=== PATIENT | male | born 1985 | race Caucasian/White ===

== ENCOUNTER 2023-10-14 21:25 | Emergency (ER) | payer OTHER, MEDICAID, SELFPAY ==
[2023-10-14 21:44] VITALS: BP 162/97; PULSE 93; RESP 22; TEMP 36.3; O2SAT 100
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
--- NOTE | 2023-10-14 21:52 | DI.RAD.S_ITS ---
PROCEDURE: XR CHEST 1V INDICATIONS: hip pain, cold, fit for nursing home TECHNIQUE: One view of the chest was acquired. COMPARISON: None. FINDINGS: Surgical changes and devices: Left clavicle fixation hardware. Lungs and pleura: Lungs are clear. No pleural effusions or pneumothorax. Mediastinum: Mediastinal contours appear normal. Heart size is normal. Bones and chest wall: No suspicious bony lesions. Overlying soft tissues appear unremarkable. IMPRESSION: No acute cardiopulmonary abnormality is seen. Approved by: Bisi Vargas M.D.,Ph.D. on 10/14/2023 at 23:31
--- NOTE | 2023-10-14 22:13 | PC.NURSE ---
Changed patient into dry clothing at this time
[2023-10-14] MEDS: TET,DIPH,PERTUSS(ACELL),VAC/PF 0.5 ML SYRINGE IM (22:14)
[2023-10-14] MEDS: LIDOCAINE/PRILOCAINE 5 GM TOP (22:15)
[2023-10-14 23:01] LABS: Add Manual Diff / Slide Review NO; Basophils Absolute Auto 100 /uL (0-100); Basophils Percent Auto 1.3 % (0-2); Eosinophils Absolute Auto 100 /uL (0-450); Eosinophils Percent Auto 1.2 % (2-4); Hematocrit 41.7 % (41-53); Hemoglobin 14.2 g/dL (13.5-17.5); Lymphocytes Absolute Auto 3400 /uL (1100-4500); Lymphocytes Percent Auto 31.9 % (25-40); Mean Corpuscular HGB Conc 34.2 % (30-36); Mean Corpuscular Hemoglobin 34.8 PG (26-34); Monocytes Absolute Auto 1000 /uL (0-900); Monocytes Percent Auto 9.8 % (3-14); Neutrophils Absolute Auto 6000 /uL (1500-7000); Neutrophils Percent Auto 55.8 % (50-75); Platelet Count 237 X10^3/uL (150-400); Red Blood Cell Count 4.08 X10^6/uL (4.5-5.9); Red Cell Distribution Width 13.7 % (11.6-14.8); White Blood Cell Count 10.7 X10^3/uL (4.5-11.0)
[2023-10-14 23:10] LABS: INR 0.9 (0.9-1.3); Prothrombin Time 10.8 SECONDS (9.4-12.5)
[2023-10-14 23:13] LABS: Alanine Aminotransferase 29 IU/L (<50); Albumin 4.8 g/dL (3.5-5.0); Albumin Globulin Ratio 1.4 (1.0-2.8); Alkaline Phosphatase 88 U/L (38-126); Aspartate Aminotransferase 50 IU/L (17-59); BUN Creatinine Ratio 14.6 (6-22); Bilirubin Total 0.5 mg/dL (0.2-1.3); Blood Urea Nitrogen 12 mg/dL (9-20); Calcium 9.3 mg/dL (8.4-10.2); Carbon Dioxide 27 mmol/L (22-32); Chloride 109 mmol/L (98-107); Estimated Glomerular Filt Rate > 60 mL/min (>60); Globulin 3.4 g/dL (1.7-4.1); Glucose 84 mg/dL (70-100); HEMOLYSIS < 15 (0-50); PTT Partial Thromboplastin Tim 35 SECONDS (25.1-36.5); Potassium 4.2 mmol/L (3.4-5.1); Sodium 144 mmol/L (137-145); Total Protein 8.2 g/dL (6.3-8.2)
[2023-10-14 23:21] VITALS: TEMP 37.3
[2023-10-14] MEDS: BACITRACIN OINT 0.9 GM PCKT 1 APPLIC TOP (23:32)
[2023-10-14] MEDS: DOXYCYCLINE HYCLATE 100 MG TABLET PO (23:37)
[2023-10-14 23:49] VITALS: BP 149/89; PULSE 89; RESP 17; O2SAT 96
[2023-10-15 00:24] LABS: Ethanol (ETOH) 206 mg/dL
== END 2023-10-14 23:51 | disposition home or self-care (01) ==
PROVIDERS: Emergency Provider Emergency Medicine
DX: S91.111A Laceration without foreign body of right great toe without damage to nail, initial encounter (principal); S00.83XA Contusion of other part of head, initial encounter; S09.90XA Unspecified injury of head, initial encounter; M25.552 Pain in left hip; F10.129 Alcohol abuse with intoxication, unspecified; Y90.7 Blood alcohol level of 200-239 mg/100 ml; Z00.8 Encounter for other general examination; X58.XXXA Exposure to other specified factors, initial encounter; Z23 Encounter for immunization
CPT/HCPCS: 12001; 36415; 70450; 70486; 71045; 72125; 73630; 80053; 80320; 85025; 85610; 85730; 90471; 99284; 90715

== ENCOUNTER 2024-07-13 01:13 | Emergency (ER) | payer OTHER, SELFPAY ==
[2024-07-13 01:21] VITALS: BP 140/106; PULSE 86; RESP 17; TEMP 36.7; O2SAT 98; BMI 24.4
--- NOTE | 2024-07-13 01:31 | ED.DENTAL ---
HPI - Dental/Oral General Chief complaint: Dental/Oral Stated complaint: broken tooth pain x3 days Time Seen by Provider: 07/13/24 01:31 Source: patient Mode of arrival: Ambulatory History of Present Illness HPI Narrative: 38-year-old male no significant past medical history complaining of dental pain, states has been ongoing persistent for the past 3 days, states that it was secondary to a broken tooth, he denies any difficulty swallowing breathing speaking, denies any other symptoms such as headache visual disturbances chest pain shortness breath fever chills nausea vomiting abdominal pain or any other GI/ symptoms time. Patient states that he knows he has a lot of cavities and knees as he had dentist, states that he does not currently have 1 but is in the process of getting 1. Related Data Previous Rx's Medication Instructions Recorded doxycycline hyclate 100 mg tablet 100 mg PO BID #20 tabs 10/14/23 clindamycin HCl 150 mg capsule 450 mg (3 x 150 mg) PO TID 2 weeks 07/13/24 #126 caps Allergies Allergy/AdvReac Type Severity Reaction Status Date / Time amoxicillin Allergy Verified 10/14/23 21:44 Review of Systems Review of Systems Narrative: General: Denies fever, chills, weight loss HEENT: Positive dental pain, Denies headache, eye drainage, eye irritation, head trauma, sore throat, voice change Cardiovascular: Denies any chest pain, palpitations, tachycardia Respiratory: Denies any shortness of breath, cough, wheeze, stridor GI/: Denies any abdominal pain, nausea, vomiting, diarrhea, bright red blood per rectum, melanotic stools, urinary frequency, urinary retention, dysuria, hematuria MSK: Denies any joint pain, muscle pains, swelling Skin: Denies any rashes, lesions, discoloration Neuro: Denies any headache, lightheadedness, dizziness, fainting, weakness Psych: Denies SI/HI Patient History Social History Smoking Status: Current every day smoker Smoking Status: Current every day smoker alcohol intake frequency: 0-2 drinks per day Exam Narrative Exam Narrative: General: Cooperative, well-developed, not in acute distress HEENT: Patient with multiple dental caries, did note broken tooth to the posterior inferior right molar, no periapical abscess noted, patient is speaking full sentences protecting airway no voice changes no stridor no trismus Normocephalic, atraumatic, PERRLA, normal sclera, eyelids normal Neck: Active full range of motion, atraumatic Chest: Normal to inspection, negative crepitus, no overlying erythema ecchymosis Respiratory: Normal respiratory effort, not in acute respiratory distress, clear to auscultation bilaterally negative cough, wheeze, tachypnea, rhonchi, rales Cardiology: Regular rate rhythm negative gallop, murmur, rubs GI/: No tenderness to palpation, soft, non rigid, normal to inspection, exam deferred MSK: Full active range of motion in all 4 extremities, atraumatic, no tenderness to palpation of any bony prominences Skin: No rashes or lesions noted Neuro: Alert awake oriented x3, moves all 4 extremities spontaneously, cranial nerves intact, able to answer all questions appropriately follows commands appropriately Psych: Cooperative, negative suicidal or homicidal ideations Initial Vital Signs Initial Vital Signs: Vital Signs Temperature 98.0 F 07/13/24 01:21 Pulse Rate 86 07/13/24 01:21 Respiratory Rate 17 07/13/24 01:21 Blood Pressure 140/106 H 07/13/24 01:21 Pulse Oximetry 98 07/13/24 01:21 Oxygen Delivery Method Room Air 07/13/24 01:21 Course Vital Signs Vital signs: Vital Signs - 8 hr 07/13/24 01:21 Temperature 98.0 F Pulse Rate 86 Respiratory Rate 17 Blood Pressure 140/106 H Pulse Oximetry 98 Oxygen Delivery Method Room Air MDM - Dental/Oral Differential Diagnosis Differential diagnosis: Likely dental caries, toothache, dental abscess and fracture of tooth MDM Narrative Medical decision making narrative: 38-year-old male without any significant past medical history presenting for dental pain, states he knows he has a multiple dental caries as well as recently fractured a tooth to his bottom right jaw, states that the pain started few weeks ago it initially went away but over the past 3 days has come back in his gotten worse, he denies any other symptoms, on exam multiple dental caries noted within the mouth, however no periapical abscess noted, patient is speaking full sentences protecting airway no voice changes no stridor no trismus, patient will be sent home with antibiotics and pain management and instructed to follow up with a dentist, he verbalized understanding of this strict return precautions given agrees to being discharged home with outpatient follow up Discharge Plan Departure Patient Disposition: Home Clinical Impression: Pain, dental Instructions: DI for Dental Pain Activity Restrictions/Additional Instructions: Please follow up with your primary care doctor and your dentist Please read the discharge instructions sheet carefully and bring all papers to all doctor follow-up visits, as it may contain information that your doctor may want to see. Disease processes change and evolve, if your symptoms worsen or if you develop any new symptoms that are concerning to you please return for evaluation. Your evaluation today does not show any evidence of any life-threatening/serious illnesses requiring admission to the hospital or surgery. Please follow-up with your doctor for re-evaluation in approximately 1 day. Seek immediate medical attention for any worrisome symptoms. *If you do not have a primary care provider please contact the [facility] Resource line at [phone]. They will ask some questions about your medical history and help get you set up with a doctor in the community. Prescriptions: New clindamycin HCl 150 mg capsule 450 mg PO TID 14 Days Qty: 126 0RF No Action doxycycline hyclate 100 mg tablet 100 mg PO BID Qty: 20 0RF Stand Alone Forms: Patient Portal/API/Survey
[2024-07-13] MEDS: OXYCODONE/APAP 5/325 PREPACK 1 BOTTLE MISC (01:47)
[2024-07-13] MEDS: CLINDAMYCIN 150 MG CAPSULE 450 MG PO (01:48)
== END 2024-07-13 01:53 | disposition home or self-care (01) ==
PROVIDERS: Emergency Provider Student in an Organized Health Care Education/Training Program
DX: K08.89 Other specified disorders of teeth and supporting structures (principal)
CPT/HCPCS: 99283

== ENCOUNTER 2024-08-05 11:31 | Emergency (ER) | payer OTHER, SELFPAY ==
[2024-08-05 11:43] VITALS: BP 169/98; PULSE 58; RESP 16; TEMP 36.9; O2SAT 100; BMI 23.4
[2024-08-05] MEDS: ACETAMINOPHEN 325 MG TABLET 975 MG PO (13:34)
[2024-08-05 13:39] LABS: Add Manual Diff / Slide Review NO; Basophils Absolute Auto 100 /uL (0-100); Basophils Percent Auto 0.9 % (0-2); Eosinophils Absolute Auto 100 /uL (0-450); Hematocrit 42.3 % (41-53); Lymphocytes Absolute Auto 1800 /uL (1100-4500); Lymphocytes Percent Auto 16.5 % (25-40); Mean Corpuscular HGB Conc 35.4 % (30-36); Mean Corpuscular Volume 101.6 fL (80-100); Monocytes Absolute Auto 1200 /uL (0-900); Monocytes Percent Auto 11.1 % (3-14); Neutrophils Absolute Auto 7500 /uL (1500-7000); Neutrophils Percent Auto 70.5 % (50-75); Platelet Count 226 X10^3/uL (150-400); Red Blood Cell Count 4.16 X10^6/uL (4.5-5.9); Red Cell Distribution Width 15.1 % (11.6-14.8); White Blood Cell Count 10.7 X10^3/uL (4.5-11.0)
[2024-08-05 13:49] LABS: BUN Creatinine Ratio 13.3 (6-22); Blood Urea Nitrogen 10 mg/dL (9-20); Calcium 9.4 mg/dL (8.4-10.2); Carbon Dioxide 20 mmol/L (22-32); Chloride 106 mmol/L (98-107); Estimated Glomerular Filt Rate > 60 mL/min (>60); Glucose 103 mg/dL (70-99); Sodium 137 mmol/L (137-145)
[2024-08-05 13:50] LABS: HEMOLYSIS 121 (0-50)
--- NOTE | 2024-08-05 14:36 | ED_ITS ---
HPI - General Adult General Chief complaint: Dental/Oral Stated complaint: Right side jaw swelling, hard time swallowing Time Seen by Provider: 08/05/24 14:24 Source: patient, RN notes reviewed and old records reviewed Mode of arrival: Ambulatory Limitations: no limitations History of Present Illness HPI narrative: 38-year-old male phone history of poor dentition has been taking clindamycin for 2 or 3 weeks anticipating having 1 of his molars removed on the right side. Patient states over the last day or so he was started having increasing swelling underneath the right jaw as well as increasing pain that radiates to his ear. No fevers. He was had some nausea but no vomiting. No muffled voice or changes to his airway. He states there might be a little bit of swelling underneath his tongue but states it is mostly off to the side and below the right jaw. Patient states it is tender to touch. He has not seen any redness or warmth on the outside. Has not had any drainage in the inside. States he was not on any other daily medications normally. Quit using tobacco and started vaping recently, occasional alcohol, marijuana no recreational drugs. States no other daily medications. Describes an allergy to amoxicillin with rash. He was not sure about any other antibiotics and states he was very young when this occurred. He has not upcoming appointment with a dentist to have his tooth extracted. Related Data Previous Rx's Medication Instructions Recorded doxycycline hyclate 100 mg tablet 100 mg PO BID #20 tabs 10/14/23 metronidazole 500 mg tablet 500 mg PO Q8H 7 days #21 tabs 08/05/24 Allergies Allergy/AdvReac Type Severity Reaction Status Date / Time amoxicillin Allergy Verified 08/05/24 11:42 Review of Systems Review of Systems ROS Unobtainable: All systems reviewed & are unremarkable except as noted in HPI and below Patient History tobacco type: vaping alcohol intake frequency: 0-2 drinks per day Exam Narrative Exam Narrative: GEN: well nourished, well appearing male, alert and oriented x 3, patient appears to be in mild distress. HEENT: Atraumatic, pupils are equal round reactive to light, extraocular movements are intact, nares are clear, TMs are clear with no fluid, there is no conjunctival pallor. Throat is clear without any exudates, erythema, tonsillar enlargement or uvular deviation, patient does have poor dentition throughout, some mild swelling of the right cheek externally and submandibularly, no palpable nodules or abscess. Normal speech no stridor no difficulty with secretions. No muffled voice or hoarseness. HEART: Regular rate and rhythm without murmur, clicks, rubs. LUNGS:Lungs clear to auscultation, no wheezes, rales, crackles, chest moves symmetrically ABD:bowel sounds normal, soft, non-tender, no guarding, rebound, rigidity, no masses noted, no hepatosplenomegaly MSCL: Non-tender, no muscle atrophy, muscles strength 5/5 upper and lower extremities, full range of motion, normal gait NEURO:CN 2-12 intact, sensation normal. SKIN: No rash, erythema or other skin changes noted Initial Vital Signs Initial Vital Signs: Vital Signs Temperature 98.5 F 08/05/24 11:43 Pulse Rate 58 L 08/05/24 11:43 Respiratory Rate 16 08/05/24 11:43 Blood Pressure 169/98 H 08/05/24 11:43 Pulse Oximetry 100 08/05/24 11:43 Oxygen Delivery Method Room Air 08/05/24 11:43 Course Orders Ordered: ED Orders 08/05/24 13:29 BMP [Basic Metabolic Panel] Stat Complete Blood Count AUTO DIFF Stat 08/05/24 14:47 CT soft tissue neck w con Stat Discontinued Medications Acetaminophen (Acetaminophen 325 Mg Tablet) 975 mg PO NOW ONE Stop: 08/05/24 13:31 Last Admin: 08/05/24 13:34 Dose: 975 mg Documented By: CELIA Acetaminophen (Acetaminophen 650 Mg Supp) 650 mg [place] NOW ONE Stop: 08/05/24 13:31 Last Admin: 08/05/24 13:34 Dose: Not Given Documented By: CELIA Ibuprofen (Ibuprofen 400 Mg Tablet) 800 mg PO NOW ONE Stop: 08/05/24 13:31 Last Admin: 08/05/24 15:07 Dose: Not Given Documented By: SB Ketorolac Tromethamine (Ketorolac 30 Mg/Ml Vial) 15 mg IV NOW ONE Stop: 08/05/24 14:48 Last Admin: 08/05/24 15:10 Dose: 15 mg Documented By: TC Vital Signs Vital signs: Vital Signs - 8 hr 08/05/24 11:43 08/05/24 16:15 Temperature 98.5 F Pulse Rate 58 L 58 L Respiratory Rate 16 16 Blood Pressure 169/98 H 166/92 H Pulse Oximetry 100 100 Oxygen Delivery Method Room Air Room Air Medical Decision Making Lab Data 08/05/24 13:29 08/05/24 13:29 Labs: Lab Results 08/05/24 Range/Units 13:29 WBC 10.7 (4.5-11.0) X10^3/uL RBC 4.16 L (4.5-5.9) X10^6/uL Hgb 15.0 (13.5-17.5) g/dL Hct 42.3 (41-53) % MCV 101.6 H (80-100) fL MCH 36.0 H (26-34) PG MCHC 35.4 (30-36) % RDW 15.1 H (11.6-14.8) % Plt Count 226 (150-400) X10^3/uL Neut % (Auto) 70.5 (50-75) % Lymph % (Auto) 16.5 L (25-40) % [place] % (Auto) 11.1 (3-14) % Eos % (Auto) 1.0 L (2-4) % Baso % (Auto) 0.9 (0-2) % Neut # (Auto) 7500 H (1463-8933) /uL Lymph # (Auto) 1800 (1053-3145) /uL [place] # (Auto) 1200 H (0-900) /uL Eos # (Auto) 100 (0-450) /uL Baso # (Auto) 100 (0-100) /uL Sodium 137 (137-145) mmol/L Potassium 5.0 (3.4-5.1) mmol/L Chloride 106 (98-107) mmol/L Carbon Dioxide 20 L (22-32) mmol/L BUN 10 (9-20) mg/dL Creatinine 0.75 (0.66-1.25) mg/dL Estimated GFR > 60 (>60) mL/min BUN/Creatinine Ratio 13.3 (6-22) Glucose 103 H (70-99) mg/dL Calcium 9.4 (8.4-10.2) mg/dL [facility] Narrative Medical decision making narrative: Labs show white count of 10 hemoglobin of 15 platelets of 226. Electrolytes are appropriate CO2 is 20, BUN creatinine are appropriate glucose is 103. Patient has had new swelling on the side of his known dental infection despite being on clindamycin we will obtain CT soft tissue neck to rule out abscess. CT imaging shows nonspecific soft tissue edema right lower face no abscess seen no signs of osteomyelitis. Oropharynx, nasopharynx and pharynx demonstrate no mucosal lesions the vocal cords, false vocal cords piriformis sinus epiglottis, vallecula and tongue base all appear normal. Parotid and submandibular glands appear normal thyroid is unremarkable. No peripheral enhancing fluid collections noted. Patient has an allergy to amoxicillin, describes it as hives. Has a as a child. Essential if any other antibiotic allergies. Discussed with the patient we will change his oral antibiotic. Discharge Plan Departure Patient Disposition: Home Clinical Impression: Cellulitis of face, Dental infection Instructions: DI for Cellulitis -- Adult Activity Restrictions/Additional Instructions: Follow up with your dentist to have your tooth extracted, there is no abscess or fluid collection, there was no signs of change to the bone itself imaging today. Because of your antibiotic allergies you can continue your current antibiotic but add Flagyl 500 mg 1 tablet 3 times daily for 7 days. This medication will make you vomit if you drink alcohol while taking it. Prescription sent to [facility] in [place]. Please return for fevers, rapidly worsening swelling, any new redness, drainage, swelling of the lips, tongue or airway, difficulty with swallowing or slept for secretions, any changes to voice or other new or concerning changes. Prescriptions: New metronidazole 500 mg tablet 500 mg PO Q8H 7 Days Qty: 21 0RF No Action doxycycline hyclate 100 mg tablet 100 mg PO BID Qty: 20 0RF Stand Alone Forms: Patient Portal/API/Survey
--- NOTE | 2024-08-05 14:47 | DI.CT.S_ITS ---
PROCEDURE: CT SOFT TISSUE NECK W CON INDICATIONS: R jaw swelling, known poor dentition, has been on abx recent TECHNIQUE: After the administration of intravenous contrast, 3.0 mm axial sections acquired from the sella to the aortic arch. Additional oblique axial 3.0 mm sections acquired through the pharynx. 3 mm thick coronal and sagittal reformats were generated. For radiation dose reduction, the following was used: automated exposure control. COMPARISON: [facility], CT, CT CERVICAL SPINE WO CON, 10/14/2023, 21:54. FINDINGS: Image quality: Excellent. Lymph nodes: Increased number of small right upper cervical lymph nodes, which are likely reactive. Vessels: Visualized vasculature appears patent. Neck spaces: Predominantly right-sided dental disease is noted. The oropharynx, nasopharynx, and pharynx demonstrate no mucosal lesions. The vocal cords, false vocal cords, pyriform sinuses, epiglottis, vallecula, and tongue base all appear normal. Extramucosal spaces appear unremarkable. Glands: The parotid and submandibular glands appear normal. Thyroid is unremarkable. Miscellaneous: Soft tissue edema is seen in the right face overlying the mandible. No peripherally enhancing fluid collection is seen. Visualized brain and orbits appear normal. Lung apices appear clear. Bones: No suspicious bony lesions. Visualized sinuses and mastoids appear unremarkable. Postsurgical changes noted in the left clavicle. IMPRESSION: Nonspecific soft tissue edema in the right lower face. No abscess is seen. No signs of osteomyelitis. Approved by: Greyson Blakely M.D. on 08/05/2024 at 15:40
[2024-08-05] MEDS: KETOROLAC 30 MG/ML VIAL 15 MG IV (15:10)
[2024-08-05 16:15] VITALS: BP 166/92; PULSE 58; RESP 16; O2SAT 100
== END 2024-08-05 16:16 | disposition home or self-care (01) ==
PROVIDERS: Emergency Provider Emergency Medicine
DX: L03.211 Cellulitis of face (principal); K04.7 Periapical abscess without sinus; Z88.0 Allergy status to penicillin
CPT/HCPCS: 70491; 80048; 85025; 96374; 99284; J1885; Q9967

== ENCOUNTER 2024-08-10 15:45 | Emergency (ER) | payer OTHER, SELFPAY ==
[2024-08-10 16:04] VITALS: BP 125/79; PULSE 90; RESP 20; TEMP 36.6; O2SAT 100; BMI 22.4
--- NOTE | 2024-08-10 21:35 | PC.NURSE ---
called pt to come back to draw labs and for repeat Ct, no answer in [facility], registration stated pt left
== END 2024-08-10 21:38 | disposition left against medical advice (07) ==
PROVIDERS: Emergency Provider Emergency Medicine
DX: R68.84 Jaw pain (principal)
CPT/HCPCS: 99281

== ENCOUNTER 2024-08-11 19:31 | Emergency (ER) | payer OTHER, SELFPAY ==
[2024-08-11] VITALS (10 sets, daily range): BP systolic 121–146; BP diastolic 78–95; PULSE 56–84; RESP 18; TEMP 36.9; O2SAT 99–100; BMI 24.4
--- NOTE | 2024-08-11 19:49 | ED_ITS ---
HPI - General Adult General Chief complaint: Dental/Oral Stated complaint: rt sided jaw pain, swelling Time Seen by Provider: 08/11/24 19:38 Mode of arrival: Ambulatory History of Present Illness HPI narrative: 38-year-old male with poor dentition, complains of 3 weeks' duration right jaw pain, history of amoxicillin allergy, was prescribed clindamycin from ED visit, saw another provider recent days [facility], apparently prescribed clindamycin again, does not recall being on any steroids, has not yet seen any dentist provider. Complains of right jaw pain and swelling. Able to swallow. Can move his neck. Related Data Previous Rx's Medication Instructions Recorded doxycycline hyclate 100 mg tablet 100 mg PO BID #20 tabs 10/14/23 metronidazole 500 mg tablet 500 mg PO Q8H 7 days #21 tabs 08/05/24 clindamycin HCl 300 mg capsule 300 mg PO Q6H Dental infection 7 08/12/24 days #28 caps prednisone 20 mg tablet 40 mg (2 x 20 mg) PO DAILY 5 days 08/12/24 #10 tabs Allergies Allergy/AdvReac Type Severity Reaction Status Date / Time amoxicillin Allergy Verified 08/11/24 22:41 Patient History tobacco type: vaping alcohol intake frequency: 0-2 drinks per day Exam Narrative Exam Narrative: GENERAL: Well-developed patient, in mild distress. HEAD: Atraumatic. Normocephalic. EYES: Pupils equal round and reactive. Extraocular motions intact. No scleral icterus. No injection or drainage. ENT: Nose without bleeding, purulent drainage. Throat without erythema, tonsillar hypertrophy or exudate. Airway patent. Swelling of the right jaw. Oropharynx with significant diffuse poor dentition, numerous broken teeth including right molar region, also right upper incisor and canine. NECK: Trachea midline. Non tender can move neck well. CARDIOVASCULAR: Regular rate and rhythm without murmurs, gallops, or rubs. RESPIRATORY: Clear to auscultation. Breath sounds equal bilaterally. No wheezes, rales, or rhonchi. GASTROINTESTINAL: Abdomen soft, non-tender, nondistended. EXTREMITIES: No edema or joint tenderness. BACK: Nontender without deformity or crepitance. No flank tenderness. NEURO: AOx3. Motor functions grossly nonfocal SKIN: No rash or erythema of visible areas Initial Vital Signs Initial Vital Signs: Vital Signs Temperature 98.4 F 08/11/24 19:39 Pulse Rate 84 08/11/24 19:39 Respiratory Rate 18 08/11/24 19:39 Blood Pressure 121/78 08/11/24 19:39 Pulse Oximetry 99 08/11/24 19:39 Oxygen Delivery Method Room Air 08/11/24 19:39 Course Orders Ordered: ED Orders 08/11/24 19:57 CT soft tissue neck w con Stat 08/11/24 20:05 CBC Auto Diff [Complete Blood Count AUTO DIFF] Stat CMP [Comprehensive Metabolic Panel] Stat Discontinued Medications Hydrocodone Bitart/Acetaminophen (Hydrocodone/Acet 5/325 Prepack) 1 bottle MISC DIRECTED ONE Stop: 08/12/24 00:34 Last Admin: 08/12/24 00:48 Dose: 1 bottle Documented By: SALMA Dexamethasone (Dexamethasone 10 Mg/Ml Vial) 10 mg IV NOW ONE Stop: 08/11/24 19:57 Last Admin: 08/11/24 20:20 Dose: 10 mg Documented By: JESSY Sodium Chloride (Normal Saline 0.9%) 1,000 mls @ 1,000 mls/hr IV BOLUS ONE Stop: 08/11/24 20:55 Last Infusion: 08/11/24 21:50 Dose: Infused Documented By: Admin: 08/11/24 20:19 Dose: 1,000 mls/hr Documented By: JESSY Clindamycin Phosphate (Cleocin) 900 mg in 50 mls @ 50 mls/hr IV NOW ONE Stop: 08/11/24 20:55 Last Infusion: 08/11/24 21:26 Dose: Infused Documented By: Admin: 08/11/24 20:20 Dose: 50 mls/hr Documented By: JESSY Vital Signs Vital signs: Vital Signs - 8 hr 08/11/24 19:39 08/11/24 20:28 08/11/24 20:30 Temperature 98.4 F Pulse Rate 84 61 59 L Respiratory Rate 18 Blood Pressure 121/78 134/85 Pulse Oximetry 99 100 100 Oxygen Delivery Method Room Air Room Air 08/11/24 21:00 08/11/24 21:30 08/11/24 21:30 Temperature Pulse Rate 64 Respiratory Rate Blood Pressure 142/84 H Pulse Oximetry 100 100 Oxygen Delivery Method 08/11/24 22:00 08/11/24 22:00 08/11/24 22:05 Temperature Pulse Rate 57 L 57 L Respiratory Rate Blood Pressure 145/89 H Pulse Oximetry 100 100 Oxygen Delivery Method 08/11/24 22:05 08/11/24 22:30 08/11/24 22:30 Temperature Pulse Rate 59 L Respiratory Rate Blood Pressure 139/93 H 146/93 H Pulse Oximetry 99 Oxygen Delivery Method 08/11/24 22:30 08/11/24 23:00 08/11/24 23:00 Temperature Pulse Rate 59 L 59 L Respiratory Rate Blood Pressure 146/95 H Pulse Oximetry 99 99 Oxygen Delivery Method 08/11/24 23:30 08/11/24 23:30 08/12/24 00:00 Temperature Pulse Rate 56 L 62 Respiratory Rate Blood Pressure 132/87 Pulse Oximetry 99 99 Oxygen Delivery Method 08/12/24 00:00 08/12/24 00:30 08/12/24 00:30 Temperature Pulse Rate 69 Respiratory Rate 16 Blood Pressure 134/88 144/88 H Pulse Oximetry 100 Oxygen Delivery Method Medical Decision Making Lab Data 08/11/24 20:05 08/11/24 20:05 Labs: Lab Results 08/11/24 Range/Units 20:05 WBC 11.3 H (4.5-11.0) X10^3/uL RBC 4.01 L (4.5-5.9) X10^6/uL Hgb 14.2 (13.5-17.5) g/dL Hct 42.0 (41-53) % MCV 104.7 H D (80-100) fL MCH 35.5 H (26-34) PG MCHC 33.9 (30-36) % RDW 15.8 H (11.6-14.8) % Plt Count 357 (150-400) X10^3/uL Neut % (Auto) 67.6 (50-75) % Lymph % (Auto) 19.3 L (25-40) % [place] % (Auto) 10.8 (3-14) % Eos % (Auto) 1.5 L (2-4) % Baso % (Auto) 0.8 (0-2) % Neut # (Auto) 7600 H (7940-4884) /uL Lymph # (Auto) 2200 (1697-7647) /uL [place] # (Auto) 1200 H (0-900) /uL Eos # (Auto) 200 (0-450) /uL Baso # (Auto) 100 (0-100) /uL Sodium 139 (137-145) mmol/L Potassium 4.9 (3.4-5.1) mmol/L Chloride 108 H (98-107) mmol/L Carbon Dioxide 18 L (22-32) mmol/L BUN 17 (9-20) mg/dL Creatinine 1.30 H (0.66-1.25) mg/dL Estimated GFR > 60 (>60) mL/min BUN/Creatinine Ratio 13.1 (6-22) Glucose 177 H (70-99) mg/dL Calcium 9.5 (8.4-10.2) mg/dL Total Bilirubin 0.6 (0.2-1.3) mg/dL AST 30 (17-59) IU/L ALT 18 (<50) IU/L Alkaline Phosphatase 73 (38-126) U/L Total Protein 8.1 (6.3-8.2) g/dL Albumin 4.5 (3.5-5.0) g/dL Globulin 3.6 (1.7-4.1) g/dL Albumin/Globulin Ratio 1.3 (1.0-2.8) Imaging Data CT soft tissue neck with IV contrast: Radiologist's Impression: [place] [address] CT Scan Report Signed Patient: Sukhwinder Lau MR#: [id number] : 1985 Acct:[id number] Age/Sex: 38 / M Date of Service: 08/11/24 Loc: ED Accession Number: [id number] Procedure: CT soft tissue neck w con Ordering Provider: Venkatesh Villaseñor MD PROCEDURE: CT SOFT TISSUE NECK W CON INDICATIONS: right jaw swelling, eval for drainable abscess TECHNIQUE: After the administration of intravenous contrast, 3.0 mm axial sections acquired from the sella to the aortic arch. Additional oblique axial 3.0 mm sections acquired through the pharynx. 3 mm thick coronal and sagittal reformats were generated. For radiation dose reduction, the following was used: automated exposure control. COMPARISON: [facility], CT, CT SOFT TISSUE NECK W CON, 08/05/2024, 14:56. FINDINGS: Image quality: Excellent. Bone: No acute fracture or dislocation. Alignment: Straightening of the cervical lordosis. Muscles: Overall muscle bulk is preserved. Neck spaces: Fat stranding in the right parapharyngeal fat space (2/23). Asymmetric edema of the right submandibular gland (2/46). Asymmetric fat stranding of the right submandibular/buccal space (2/42). 0.9 cm hypodense collection without clearly defined borders, in contact with dehiscence of the buccal cortex of the right mandibular trigone (2/39). Mild asymmetric enlargement of the right sales solutions associate and pterygoid musculature (2/30). Bilateral palatine tonsilloliths. The parotid, sales solutions associate, submandibular, parapharyngeal, pharyngeal mucosal, retropharyngeal, and perivertebral spaces are otherwise within normal limits. Orbits: Optic globes, intraconal/extraconal fat spaces, and extraocular muscles within normal limits. No retrobulbar mass. Thyroid gland: Within normal limits. Airway: Visualized trachea within normal limits. Esophagus: No abnormal mural thickening of the visualized esophagus. Lymph nodes: No cervical or medial supraclavicular lymphadenopathy by size criteria. Vessels: No aneurysmal dilatation of the visualized vasculature. Lung apices: No pneumothorax in the visualized lung apices. Sinuses: Visualized paranasal sinuses, mastoid air cells, and middle ear cavities are clear. Dentition: Periapical lucency around the right 2nd premolar dentition (5/51). Soft tissues: No acute abnormality. IMPRESSION: 1. Likely developing sub cm phlegmon originating from right mandibular trigone periapical lucency and cortical dehiscence. 2. Likely reactive right-sided facial edema, cellulitis, and myositis of the right sales solutions associate space musculature. 3. Right submandibular gland sialadenitis without an obstructing calculus. Dictated by: Abilio Urias M.D. on 08/11/2024 at 22:32 Approved by: Abilio Urias M.D. on 08/11/2024 at 22:43 MDM Narrative Medical decision making narrative: 38-year-old male with ongoing right jaw pain, poor dentition, some right-sided jaw swelling visible, some slight trismus unable to fully open his jaw due to right swelling pain. No abnormal phonation, can move his neck well. No stridor. Labs pending. IV clindamycin, Decadron, fluid bolus. He has been taking ibuprofen regularly, recently, we will hold Toradol for now. CT soft tissue neck imaging ordered. CT shows developing subcentimeter phlegmon right mandibular trigone, ortega or apical lucency with cortical dehiscence. Likely reactive right-sided facial edema, cellulitis, myositis of the right sales solutions associate space musculature, right submandibular gland [place] adenitis without obstructing calculus. See radiology report. Patient significantly improved with IV antibiotics and steroids. No oral surgeon on-call here. He would like to go home and follow up with dentist, stated that he would go to dentist office tomorrow. We will send prescription for clindamycin oral antibiotic, and prednisone pulse. Follow up with the dental tomorrow. Also given clinic contact information to local oral surgeon Dr. Culver office though he is not on-call. Also gave contact clinic information to office of otolaryngology Dr. Qiu. Discharge Plan Departure Patient Disposition: Home Clinical Impression: Dental abscess, Dental caries Instructions: Tooth Abscess, DI for Dental Pain Activity Restrictions/Additional Instructions: Right-sided jaw swelling, intermittent courses of clindamycin antibiotic due to suspected infection, history of amoxicillin allergy, increased swelling to the right jaw. IV clindamycin and steroids given. CT scanning showed small abscess less than 1 cm in right dental area. There is some inflammatory change that goes toward a salivary gland although there is no obstructing stone within the salivary gland. Likely this is arising from dental infection. Follow up with your at dentist Thursday later today. Clinic contact information also provided for local otolaryngology specialist Dr. Qiu, and local oral surgeon Dr. Culver, though most directly you would likely benefit from initial care through your dentist office. Follow up with your dentist later today during regular hours as intended. Take antibiotics and steroids as prescribed. Pain medication home pack dispensed. Return earlier to this/nearest emergency department for any change worsening symptoms or any concerns prior to your dental evaluation. Prescriptions: New clindamycin HCl 300 mg capsule 300 mg PO Q6H 7 Days Qty: 28 0RF prednisone 20 mg tablet 40 mg PO DAILY 5 Days Qty: 10 0RF No Action doxycycline hyclate 100 mg tablet 100 mg PO BID Qty: 20 0RF metronidazole 500 mg tablet 500 mg PO Q8H 7 Days Qty: 21 0RF Referrals: Horace Culver, ENZO [Physician] - Romeo Qiu MD [Physician] - Miscellaneous,MD [place] [Primary Care Provider] - Stand Alone Forms: Patient Portal/API/Survey
--- NOTE | 2024-08-11 19:57 | DI.CT.S_ITS ---
PROCEDURE: CT SOFT TISSUE NECK W CON INDICATIONS: right jaw swelling, eval for drainable abscess TECHNIQUE: After the administration of intravenous contrast, 3.0 mm axial sections acquired from the sella to the aortic arch. Additional oblique axial 3.0 mm sections acquired through the pharynx. 3 mm thick coronal and sagittal reformats were generated. For radiation dose reduction, the following was used: automated exposure control. COMPARISON: [facility], CT, CT SOFT TISSUE NECK W CON, 08/05/2024, 14:56. FINDINGS: Image quality: Excellent. Bone: No acute fracture or dislocation. Alignment: Straightening of the cervical lordosis. Muscles: Overall muscle bulk is preserved. Neck spaces: Fat stranding in the right parapharyngeal fat space (2/23). Asymmetric edema of the right submandibular gland (2/46). Asymmetric fat stranding of the right submandibular/buccal space (2/42). 0.9 cm hypodense collection without clearly defined borders, in contact with dehiscence of the buccal cortex of the right mandibular trigone (2/39). Mild asymmetric enlargement of the right embroiderer hand and pterygoid musculature (2/30). Bilateral palatine tonsilloliths. The parotid, embroiderer hand, submandibular, parapharyngeal, pharyngeal mucosal, retropharyngeal, and perivertebral spaces are otherwise within normal limits. Orbits: Optic globes, intraconal/extraconal fat spaces, and extraocular muscles within normal limits. No retrobulbar mass. Thyroid gland: Within normal limits. Airway: Visualized trachea within normal limits. Esophagus: No abnormal mural thickening of the visualized esophagus. Lymph nodes: No cervical or medial supraclavicular lymphadenopathy by size criteria. Vessels: No aneurysmal dilatation of the visualized vasculature. Lung apices: No pneumothorax in the visualized lung apices. Sinuses: Visualized paranasal sinuses, mastoid air cells, and middle ear cavities are clear. Dentition: Periapical lucency around the right 2nd premolar dentition (5/51). Soft tissues: No acute abnormality. IMPRESSION: 1. Likely developing sub cm phlegmon originating from right mandibular trigone periapical lucency and cortical dehiscence. 2. Likely reactive right-sided facial edema, cellulitis, and myositis of the right embroiderer hand space musculature. 3. Right submandibular gland sialadenitis without an obstructing calculus. Dictated by: Abilio Urias M.D. on 08/11/2024 at 22:32 Approved by: Abilio Urias M.D. on 08/11/2024 at 22:43
[2024-08-11 20:18] LABS: Add Manual Diff / Slide Review NO; Basophils Absolute Auto 100 /uL (0-100); Basophils Percent Auto 0.8 % (0-2); Eosinophils Absolute Auto 200 /uL (0-450); Eosinophils Percent Auto 1.5 % (2-4); Hemoglobin 14.2 g/dL (13.5-17.5); Lymphocytes Absolute Auto 2200 /uL (1100-4500); Lymphocytes Percent Auto 19.3 % (25-40); Mean Corpuscular HGB Conc 33.9 % (30-36); Mean Corpuscular Hemoglobin 35.5 PG (26-34); Mean Corpuscular Volume 104.7 fL (80-100); Monocytes Absolute Auto 1200 /uL (0-900); Monocytes Percent Auto 10.8 % (3-14); Neutrophils Absolute Auto 7600 /uL (1500-7000); Neutrophils Percent Auto 67.6 % (50-75); Platelet Count 357 X10^3/uL (150-400); Red Blood Cell Count 4.01 X10^6/uL (4.5-5.9); Red Cell Distribution Width 15.8 % (11.6-14.8); White Blood Cell Count 11.3 X10^3/uL (4.5-11.0)
[2024-08-11] MEDS: SODIUM CHLORIDE 0.9% 1,000 ML 1000 ML IV (20:19)
[2024-08-11] MEDS: DEXAMETHASONE 10 MG/ML VIAL IV (20:20)
[2024-08-11] MEDS: CLINDAMYCIN 900 MG/50 ML PIGGYBACK 50 MG IV (20:20)
[2024-08-11 20:51] LABS: Alanine Aminotransferase 18 IU/L (<50); Albumin 4.5 g/dL (3.5-5.0); Albumin Globulin Ratio 1.3 (1.0-2.8); Alkaline Phosphatase 73 U/L (38-126); Aspartate Aminotransferase 30 IU/L (17-59); BUN Creatinine Ratio 13.1 (6-22); Bilirubin Total 0.6 mg/dL (0.2-1.3); Blood Urea Nitrogen 17 mg/dL (9-20); Calcium 9.5 mg/dL (8.4-10.2); Carbon Dioxide 18 mmol/L (22-32); Chloride 108 mmol/L (98-107); Estimated Glomerular Filt Rate > 60 mL/min (>60); Globulin 3.6 g/dL (1.7-4.1); Glucose 177 mg/dL (70-99); HEMOLYSIS 68 (0-50); Potassium 4.9 mmol/L (3.4-5.1); Sodium 139 mmol/L (137-145); Total Protein 8.1 g/dL (6.3-8.2)
[2024-08-12] VITALS: BP 134/88; PULSE 62; O2SAT 99
[2024-08-12 00:30] VITALS: BP 144/88; PULSE 69; RESP 16; O2SAT 100
[2024-08-12] MEDS: HYDROCODONE/ACET 5/325 PREPACK 1 BOTTLE MISC (00:48)
== END 2024-08-12 00:49 | disposition home or self-care (01) ==
PROVIDERS: Emergency Provider Emergency Medicine
DX: K04.7 Periapical abscess without sinus (principal); K02.9 Dental caries, unspecified
CPT/HCPCS: 36415; 70491; 80053; 85025; 96365; 99284; J1100; Q9967

== ENCOUNTER 2024-08-16 18:26 | Emergency (ER) | payer OTHER, SELFPAY ==
[2024-08-16 18:34] VITALS: BP 148/84; PULSE 83; RESP 16; TEMP 36.7; O2SAT 98; BMI 23.7
[2024-08-16 19:44] VITALS: PULSE 63; RESP 18; O2SAT 98
[2024-08-16 19:47] VITALS: BP 128/77; PULSE 64; O2SAT 98
--- NOTE | 2024-08-16 19:53 | ED.DENTAL ---
HPI - Dental/Oral General Chief complaint: Dental/Oral Stated complaint: needs tooth pulled Time Seen by Provider: 08/16/24 19:53 History of Present Illness HPI Narrative: 38-year-old male no significant past medical history comes into the ED from home for evaluation dental pain facial swelling, states that he has been having an infection to his right lower molar for proximally weeks, states he has had increased pain but is able to tolerate p.o. liquids and solids, states it was seen at [facility] and was told he was going to have to wait proximally 2-3 weeks for extraction, he was instructed to come into the ED for further evaluation treatment. Time of evaluation patient is speaking in full sentences protecting airway, he is not complaining of any other symptoms at this time. Related Data Previous Rx's Medication Instructions Recorded clindamycin HCl 300 mg capsule 300 mg PO Q6H Dental infection 7 08/12/24 days #28 caps clindamycin HCl 150 mg capsule 450 mg (3 x 150 mg) PO TID 2 weeks 08/16/24 #126 caps Allergies Allergy/AdvReac Type Severity Reaction Status Date / Time amoxicillin Allergy Unknown Verified 08/16/24 19:53 Review of Systems Review of Systems Narrative: General: Denies fever, chills, weight loss HEENT: Positive dental pain, facial swelling Denies headache, eye drainage, eye irritation, head trauma, sore throat, voice change Cardiovascular: Denies any chest pain, palpitations, tachycardia Respiratory: Denies any shortness of breath, cough, wheeze, stridor GI/: Denies any abdominal pain, nausea, vomiting, diarrhea, bright red blood per rectum, melanotic stools, urinary frequency, urinary retention, dysuria, hematuria MSK: Denies any joint pain, muscle pains, swelling Skin: Denies any rashes, lesions, discoloration Neuro: Denies any headache, lightheadedness, dizziness, fainting, weakness Psych: Denies SI/HI Patient History tobacco type: vaping alcohol intake frequency: 0-2 drinks per day Exam Narrative Exam Narrative: General: Cooperative, well-developed, not in acute distress HEENT: Normocephalic, atraumatic, PERRLA, normal sclera, eyelids normal, patient does have some mild submandibular swelling mild tenderness to palpation but is without any voice change trismus, patient with multiple dental caries, posterior oropharynx clear without any signs of obstruction uvula is midline no stridor, is able to tolerate p.o. liquids and solids, overlying cellulitis, he is well-appearing nontoxic tolerating his secretions Neck: Active full range of motion, atraumatic Chest: Normal to inspection, negative crepitus, no overlying erythema ecchymosis Respiratory: Normal respiratory effort, not in acute respiratory distress, clear to auscultation bilaterally negative cough, wheeze, tachypnea, rhonchi, rales Cardiology: Regular rate rhythm negative gallop, murmur, rubs GI/: No tenderness to palpation, soft, non rigid, normal to inspection, exam deferred MSK: Full active range of motion in all 4 extremities, atraumatic, no tenderness to palpation of any bony prominences Skin: No rashes or lesions noted Neuro: Alert awake oriented x3, moves all 4 extremities spontaneously, cranial nerves intact, able to answer all questions appropriately follows commands appropriately Psych: Cooperative, negative suicidal or homicidal ideations Initial Vital Signs Initial Vital Signs: Vital Signs Temperature 98.1 F 08/16/24 18:34 Pulse Rate 83 08/16/24 18:34 Respiratory Rate 16 08/16/24 18:34 Blood Pressure 148/84 H 08/16/24 18:34 Pulse Oximetry 98 08/16/24 18:34 Oxygen Delivery Method Room Air 08/16/24 18:34 Course Vital Signs Vital signs: Vital Signs - 8 hr 08/16/24 18:34 08/16/24 19:44 Temperature 98.1 F Pulse Rate 83 63 Respiratory Rate 16 18 Blood Pressure 148/84 H Pulse Oximetry 98 98 Oxygen Delivery Method Room Air MDM - Dental/Oral Differential Diagnosis Differential diagnosis: Likely dental caries, toothache and dental abscess MDM Narrative Medical decision making narrative: 38-year-old male history of no significance presenting for persistent dental pain, states it has been ongoing persistent for the past 3 weeks, has been on antibiotics but states that he is close to running out did see a dentist today however he states that they told him they do not accept his insurance /does not have enough money and was told to go to [facility] in [place] he states that the next available appointment is 2-3 weeks out so he is instructed to come here for further evaluation treatment. On exam patient does have some submandibular swelling, however there is no voice change stridor trismus no overlying cellulitis posterior oropharynx is clear without any signs of obstruction patient is tolerating secretions, patient will be discharged home with antibiotics and analgesics and instructed to follow up with dentist. He was given strict return precautions he verbalized understanding of this and agrees to being discharged home with outpatient follow up Discharge Plan Departure Patient Disposition: Home Clinical Impression: Pain, dental Instructions: DI for Dental Pain Activity Restrictions/Additional Instructions: please follow up with your dentist Please read the discharge instructions sheet carefully and bring all papers to all doctor follow-up visits, as it may contain information that your doctor may want to see. Disease processes change and evolve, if your symptoms worsen or if you develop any new symptoms that are concerning to you please return for evaluation. Your evaluation today does not show any evidence of any life-threatening/serious illnesses requiring admission to the hospital or surgery. Please follow-up with your doctor for re-evaluation in approximately 1 day. Seek immediate medical attention for any worrisome symptoms. *If you do not have a primary care provider please contact the [facility] Resource line at [phone]. They will ask some questions about your medical history and help get you set up with a doctor in the community. Prescriptions: New clindamycin HCl 150 mg capsule 450 mg PO TID 14 Days Qty: 126 0RF No Action clindamycin HCl 300 mg capsule 300 mg PO Q6H 7 Days Qty: 28 0RF Referrals: Miscellaneous,Doctor [Primary Care Provider] - Stand Alone Forms: Patient Portal/API/Survey
[2024-08-16 20:00] VITALS: BP 154/97; PULSE 73; RESP 18; O2SAT 98
[2024-08-16] MEDS: CLINDAMYCIN 150 MG CAPSULE 450 MG PO (20:22)
[2024-08-16] MEDS: OXYCODONE/APAP 5/325 PREPACK 1 BOTTLE MISC (20:22)
== END 2024-08-16 20:39 | disposition home or self-care (01) ==
PROVIDERS: Emergency Provider Student in an Organized Health Care Education/Training Program
DX: K08.89 Other specified disorders of teeth and supporting structures (principal)
CPT/HCPCS: 99283